=== PATIENT | female | born 1935 | race Two or more races ===

== ENCOUNTER 2021-02-19 17:39 | Emergency (ER) | payer OTHER, MEDICAID ==
[~2021-02-19] VITALS: Ht 162.6 cm; Wt 59.0 kg
[~2021-02-19 17:39] MED LIST: AMLO10TA4 PO; AMLO2.5T45 PO; DONE5TAB33 PO; LEVO25TA7 PO; LISI2.5T47 PO; LISI40TA13 PO; vitamin d
[2021-02-19 21:30] VITALS: BP 147/77
[2021-02-19 22:23] LABS: BASOPHILS % 0.5 % (0.0-2.0); EOSINOPHILS % 1.3 % (0.0-5.0); HEMATOCRIT. 45.2 % (36.0-48.0); HEMOGLOBIN. 15.2 g/dL (12.0-16.0); LYMPHOCYTES % 25.9 % (20.0-50.0); MEAN CORPUSCULAR HEMOGLOBIN 29.7 pg (28.0-32.0); MEAN CORPUSCULAR VOLUME 88.3 fL (81.0-99.0); MONOCYTES % 6.4 % (2.0-8.0); NEUTROPHILS % 65.9 % (40.0-76.0); PLATELET 228 x1000/uL (130-400); RED BLOOD CELL COUNT 5.12 mill/uL (4.2-5.4)
[2021-02-19 22:29] LABS: CHLORIDE 108 mEq/L (98-107)
== END 2021-02-19 23:54 | disposition short-term general hospital (02) ==
LOC: ER 17:39
DX: T85.528A Displacement of other gastrointestinal prosthetic devices, implants and grafts, initial encounter (principal); Y83.3 Surgical operation with formation of external stoma as the cause of abnormal reaction of the patient, or of later complication, without mention of misadventure at the time of the procedure; Y92.9 Unspecified place or not applicable; F03.90 Unspecified dementia, unspecified severity, without behavioral disturbance, psychotic disturbance, mood disturbance, and anxiety; I10 Essential (primary) hypertension; M19.90 Unspecified osteoarthritis, unspecified site; Z93.1 Gastrostomy status
CPT/HCPCS: 36415; 80048; 85025; 99283

== ENCOUNTER 2025-05-22 16:00 | Emergency (ER) | payer OTHER, MEDICAID ==
[~2025-05-22] VITALS: Ht 165.1 cm; Wt 45.0 kg
[~2025-05-22 16:00] MED LIST changes: +AMLO-905 PO; -AMLO10TA4 PO
[2025-05-22 16:01] VITALS: O2SAT 98
[2025-05-22 17:36] LABS: BASOPHILS % 0.5 % (0.0-2.0); EOSINOPHILS % 1.1 % (0.0-5.0); HEMATOCRIT. 35.3 % (36.0-48.0); HEMOGLOBIN. 11.8 g/dL (12.0-16.0); LYMPHOCYTES % 25.3 % (20.0-50.0); MEAN PLATELET VOLUME 8.8 fl (7.4-10.4); MONOCYTES % 8.5 % (2.0-8.0); NEUTROPHILS % 64.6 % (40.0-76.0); PLATELET 210 x1000/uL (130-400); RED BLOOD CELL COUNT 4.02 mill/uL (4.2-5.4); RED CELL DISTRIBUTION WIDTH 16.9 % (11.6-14.6)
[2025-05-22] MEDS: SODIUM CHLORIDE 0.9% 1,000 ML IV ONE (17:41)
[2025-05-22 17:46] LABS: INR 1.0
[2025-05-22 17:49] LABS: CREATININE 0.3 mg/dL (0.6-1.0)
[2025-05-22 17:50] LABS: TROPONIN I HIGH SENSITIVITY 23 ng/L (3.0-34); UREA NITROGEN BLOOD 17 mg/dL (9-23)
[2025-05-22 17:51] LABS: ASPARTATE AMINOTRANSFERASE 17 IU/L (<34)
[2025-05-22 17:52] LABS: BILIRUBIN DIRECT 0.2 mg/dL (<=3.0); BILIRUBIN TOTAL 0.5 mg/dL (0.1-1.0); PROTEIN TOTAL 6.2 g/dL (6.0-8.3)
[2025-05-22 18:22] VITALS: TEMP 37
[2025-05-22 19:01] LABS: GLUCOSE URINE NEGATIVE (NEGATIVE); KETONES URINE NEGATIVE (NEGATIVE); LEUKOCYTE ESTERASE URINE 3+ (NEGATIVE); NITRITE URINE NEGATIVE (NEGATIVE); OCCULT BLOOD URINE 1+ (NEGATIVE); PH URINE 8.0 (4.5-8.0); PROTEIN URINE TRACE (NEGATIVE); SPECIFIC GRAVITY URINE 1.008 (1.005-1.030); UROBILINOGEN URINE 1.0 E.U./dL (0.2-1.0)
[2025-05-22 19:11] VITALS: TEMP 98.60
[2025-05-22 19:13] LABS: CLARITY URINE HAZY (CLEAR); COLOR URINE STRAW (YELLOW)
[2025-05-22 19:14] LABS: WBC URINE TNTC /hpf (0-2)
[2025-05-22 19:15] LABS: BACTERIA URINE 2+; MUCUS URINE TRACE /lpf (< = 2+); SQUAMOUS EPITHELIAL CELL URINE 1+ /lpf (RARE/1+)
[2025-05-22] MEDS ORDERED: CEPH500C2 MT (19:24)
[2025-05-22] MEDS: CEFTRIAXONE 1GM/50ML 50 ML IV NR (20:29)
[2025-05-22 20:55] VITALS: BP 154/70; PULSE 71; RESP 26; O2SAT 97
== END 2025-05-22 19:55 | disposition home or self-care (01) ==
LOC: ER 16:00 → CMPBEDREQ 05-23 10:34
DX: G93.49 Other encephalopathy (principal); N39.0 Urinary tract infection, site not specified; I10 Essential (primary) hypertension; Z79.890 Hormone replacement therapy; Z79.899 Other long term (current) drug therapy; Z86.73 Personal history of transient ischemic attack (TIA), and cerebral infarction without residual deficits
CPT/HCPCS: 99285; 96365; 71045; 96361; 80076; 80048; 81003; 85025; 85610; 87086; 84484; 36415; J0696; J7030